=== PATIENT | female | born 1945 | race Caucasian/White ===

== ENCOUNTER 2018-08-22 20:25 | Observation (INO) ==
[2018-08-22 20:52] VITALS: BMI 28.3
--- NOTE | 2018-08-22 20:58 | DR.AMS ---
HPI Time Seen Time Seen by Provider: 08/22/18 20:50 PMH PMH Past Medical History: Anxiety, Arthritis, Depression, Diabetes and Schizophrenia Past Surgical History: Yes Surgical History: Appendectomy and Hysterectomy Family History Family Medical History: Diabetes Mellitus Social History Do you use any recreational Drugs:: No PE Vitals Vital Signs: Temp Pulse Resp BP BP BP Pulse Ox 08/23/18 01:30 180/123 08/23/18 01:15 74 96 08/23/18 01:01 72 175/77 96 08/23/18 01:00 73 96 08/23/18 00:45 78 96 08/23/18 00:31 74 175/75 87 L 08/23/18 00:30 78 83 L 08/23/18 00:15 77 92 L 08/23/18 00:02 79 193/85 96 08/22/18 23:45 80 96 08/22/18 23:44 82 96 08/22/18 20:38 99.3 F 101 H 18 182/92 96 05/02/17 12:14 146/82 04/20/15 22:18 157/53 02/02/14 12:00 134/60 ROR Labs Reviewed Result Diagrams: 08/22/18 21:13 08/22/18 21:13 Laboratory: WBC 6.4 X10^3/uL (3.6-10.0) 08/22/18 21:13 RBC 4.14 X10^6/uL (3.5-5.4) 08/22/18 21:13 Hgb 12.7 g/dL (12.0-16.0) 08/22/18 21:13 Hct 37.5 % (36.0-47.0) 08/22/18 21:13 MCV 90.5 fL (80.0-100.0) 08/22/18 21:13 MCH 30.7 pg (27.0-34.0) 08/22/18 21:13 MCHC 33.9 g/dL (33.0-35.0) 08/22/18 21:13 RDW 13.5 % (11.6-16.5) 08/22/18 21:13 Plt Count 226 X10^3/uL (150.0-450.0) 08/22/18 21:13 MPV 6.6 fL (7.4-11.0) L 08/22/18 21:13 Neut % (Auto) 53.5 % (42.0-75.0) 08/22/18 21:13 Lymph % (Auto) 30.3 % (21.0-51.0) 08/22/18 21:13 [place] % (Auto) 11.5 % (0.0-13.0) 08/22/18 21:13 Eos % (Auto) 4.2 % (0.9-2.9) H 08/22/18 21:13 Baso % (Auto) 0.5 % (0.2-1.0) 08/22/18 21:13 Neut # (Auto) 3.4 x10^3/uL (2.2-4.8) 08/22/18 21:13 Lymph # (Auto) 1.9 X10^3/uL (1.3-2.9) 08/22/18 21:13 [place] # (Auto) 0.7 x10^3/uL (0.3-0.8) 08/22/18 21:13 Eos # (Auto) 0.3 x10^3/uL (0.0-0.2) H 08/22/18 21:13 Baso # (Auto) 0.0 X10^3/uL (0.0-0.1) 08/22/18 21:13 Absolute Nucleated RBC 0.0 /100WBC 08/22/18 21:13 Sodium 140 mmol/L (136-145) 08/22/18 21:13 Corrected Sodium 142 mmol/L (136-145) 08/22/18 21:13 Potassium 4.4 mmol/L (3.5-5.1) 08/22/18 21:13 Chloride 105 mmol/L (98-107) 08/22/18 21:13 Carbon Dioxide 29.3 mmol/L (21-32) 08/22/18 21:13 BUN 21 mg/dL (7-18) H 08/22/18 21:13 Creatinine 1.05 mg/dL (0.55-1.02) H 08/22/18 21:13 Est GFR (MDRD) Af Amer > 60 (>60) 08/22/18 21:13 Est GFR (MDRD) Non-Af 54 (>60) L 08/22/18 21:13 Glucose 165 mg/dL (65-99) H 08/22/18 21:13 Calcium 10.1 mg/dL (8.5-10.1) 08/22/18 21:13 Corrected Calcium TNP 08/22/18 21:13 Total Bilirubin 0.10 mg/dL (0.2-1.0) L 08/22/18 21:13 AST < 6 Units/L (15-37) L 08/22/18 21:13 ALT 6 Units/L (12-78) L 08/22/18 21:13 Alkaline Phosphatase 110 Units/L (46-116) 08/22/18 21:13 Total Protein 7.2 g/dL (6.4-8.2) 08/22/18 21:13 Albumin 3.9 g/dL (3.4-5.0) 08/22/18 21:13 Globulin 3.3 g/dL (2.5-4.5) 08/22/18 21:13 Albumin/Globulin Ratio 1.2 Ratio (1.1-2.1) 08/22/18 21:13 Opioid Opioid Risk Tool Total: 0 Total Score Risk Category: Low Risk Copyright: Toy MCDONALD predicting aberrant behaviors Instructions Forms: Excuse From Work
[2018-08-22 21:23] LABS: BASOPHILS % (AUTO) 0.5 % (0.2-1.0); EOSINOPHILS # (AUTO) 0.3 x10^3/uL (0.0-0.2); EOSINOPHILS % (AUTO) 4.2 % (0.9-2.9); HEMATOCRIT 37.5 % (36.0-47.0); HEMOGLOBIN 12.7 g/dL (12.0-16.0); LYMPHOCYTES # (AUTO) 1.9 X10^3/uL (1.3-2.9); LYMPHOCYTES % (AUTO) 30.3 % (21.0-51.0); MEAN CORPUSCULAR HEMOGLOBIN 30.7 pg (27.0-34.0); MEAN CORPUSCULAR HGB CONC 33.9 g/dL (33.0-35.0); MEAN CORPUSCULAR VOLUME 90.5 fL (80.0-100.0); MEAN PLATELET VOLUME 6.6 fL (7.4-11.0); MONOCYTES # (AUTO) 0.7 x10^3/uL (0.3-0.8); MONOCYTES % (AUTO) 11.5 % (0.0-13.0); NEUTROPHILS # (AUTO) 3.4 x10^3/uL (2.2-4.8); NEUTROPHILS % (AUTO) 53.5 % (42.0-75.0); PLATELET COUNT 226 X10^3/uL (150.0-450.0); RED BLOOD COUNT 4.14 X10^6/uL (3.5-5.4); RED CELL DISTRIBUTION WIDTH 13.5 % (11.6-16.5); WHITE BLOOD COUNT 6.4 X10^3/uL (3.6-10.0)
[2018-08-22 21:34] LABS: ALANINE AMINOTRANSFERASE 6 Units/L (12-78); ALBUMIN 3.9 g/dL (3.4-5.0); ALKALINE PHOSPHATASE 110 Units/L (46-116); ASPARTATE AMINO TRANSFERASE < 6 Units/L (15-37); BLOOD UREA NITROGEN 21 mg/dL (7-18); CALCIUM 10.1 mg/dL (8.5-10.1); CARBON DIOXIDE 29.3 mmol/L (21-32); CHLORIDE 105 mmol/L (98-107); COR NA(FOR HYPERGLY) 142 mmol/L (136-145); CREATININE 1.05 mg/dL (0.55-1.02); SODIUM 140 mmol/L (136-145); TOTAL PROTEIN 7.2 g/dL (6.4-8.2); eGFR NON BLACK RACES 54 (>60)
--- NOTE | 2018-08-23 02:07 | CT ---
HISTORY: Found down. History of dementia. Study: CT brain without contrast Comparison: 04/20/2015. Technique: Multiple axial images of the brain were obtained from the skull base to the vertex without administration of IV contrast. Findings: There is diffuse cerebral atrophy, progressed from prior study from 2016. There also moderate multifocal areas of hypoattenuation involving the periventricular and subcortical white matter, compatible with chronic small vessel ischemic disease. No acute ischemic infarct is identified. There is no acute intracranial hemorrhage, mass, mass effect, or midline shift. No extra-axial fluid collection is identified. Orbits are unremarkable. Skull base is unremarkable. Calvarium is intact. Extracalvarial soft tissues are unremarkable. Visualized paranasal sinuses and mastoid air cells are clear. IMPRESSION: 1. No acute intracranial process can be identified. 2. Progressed cerebral atrophy and chronic small vessel ischemic disease. Reported By:
[2018-08-23] MEDS ORDERED: HumuLIN R SC PRN (03:00)
[2018-08-23 03:45] LABS: BILIRUBIN,URINE NEGATIVE (NEGATIVE); BLOOD/HEMOGLOBIN,URINE NEGATIVE (NEGATIVE); GLUCOSE, URINE NEGATIVE (NEGATIVE); KETONES,URINE NEGATIVE (NEGATIVE); LEUKOCYTE ESTERASE ,URINE 1+ (NEGATIVE); NITRITES,URINE NEGATIVE (NEGATIVE); PH,URINE 6.5 (5.0 - 8.0); PROTEIN,URINE NEGATIVE (NEGATIVE); UROBILINOGEN,URINE NORMAL (NORMAL)
[2018-08-23 04:16] LABS: APPEARANCE,URINE CLEAR (CLEAR); COLOR,URINE YELLOW (YELLOW)
[2018-08-23 04:17] LABS: BACTERIA,URINE NEGATIVE /HPF (NEGATIVE); RBC,URINE NONE SEEN /HPF (NONE SEEN); SQUAMOUS EPITHELIAL CELL,UR RARE /HPF (NEGATIVE); TRANSITIONAL EPI CELLS,URINE RARE /HPF (NEGATIVE)
[2018-08-23] MEDS ORDERED: CATAPRES TAB 0.1 MG ONE ×2 (04:19→05:14)
[2018-08-23] MEDS ORDERED: CATAPRES TAB 0.1 MG PO ONE ×2 (04:24→05:13)
[2018-08-23 05:56] LABS: BASOPHILS % (AUTO) 0.5 % (0.2-1.0); EOSINOPHILS # (AUTO) 0.3 x10^3/uL (0.0-0.2); EOSINOPHILS % (AUTO) 4.6 % (0.9-2.9); HEMATOCRIT 39.2 % (36.0-47.0); HEMOGLOBIN 13.2 g/dL (12.0-16.0); LYMPHOCYTES # (AUTO) 2.8 X10^3/uL (1.3-2.9); LYMPHOCYTES % (AUTO) 41.1 % (21.0-51.0); MEAN CORPUSCULAR HEMOGLOBIN 30.7 pg (27.0-34.0); MEAN CORPUSCULAR HGB CONC 33.6 g/dL (33.0-35.0); MEAN CORPUSCULAR VOLUME 91.4 fL (80.0-100.0); MEAN PLATELET VOLUME 6.9 fL (7.4-11.0); MONOCYTES # (AUTO) 0.7 x10^3/uL (0.3-0.8); NEUTROPHILS # (AUTO) 2.9 x10^3/uL (2.2-4.8); NEUTROPHILS % (AUTO) 42.8 % (42.0-75.0); PLATELET COUNT 229 X10^3/uL (150.0-450.0); RED BLOOD COUNT 4.29 X10^6/uL (3.5-5.4); RED CELL DISTRIBUTION WIDTH 13.9 % (11.6-16.5); WHITE BLOOD COUNT 6.7 X10^3/uL (3.6-10.0)
[2018-08-23 06:07] LABS: ALANINE AMINOTRANSFERASE 7 Units/L (12-78); ALBUMIN 3.8 g/dL (3.4-5.0); ALKALINE PHOSPHATASE 94 Units/L (46-116); ASPARTATE AMINO TRANSFERASE < 6 Units/L (15-37); BLOOD UREA NITROGEN 17 mg/dL (7-18); CALCIUM 9.5 mg/dL (8.5-10.1); CARBON DIOXIDE 25.9 mmol/L (21-32); CHLORIDE 107 mmol/L (98-107); COR NA(FOR HYPERGLY) 141 mmol/L (136-145); CREATININE 0.88 mg/dL (0.55-1.02); MAGNESIUM 1.8 mg/dL (1.7-2.9); SODIUM 141 mmol/L (136-145); TOTAL PROTEIN 7.1 g/dL (6.4-8.2); eGFR NON BLACK RACES > 60 (>60)
[2018-08-23] MEDS ORDERED: ULTRAM ONE (10:35)
[2018-08-23] MEDS ORDERED: VISTARIL PO ONE (10:36)
--- NOTE | 2018-08-23 10:44 | DR.H&P ---
H&P - History & Physical for Day of: H&P Date: 08/23/18 - Chief Complaint Chief Complaint: AMS, CONFUSION - History of Present Illness History of Present Illness: 73 WF ER ADMISSION AFTER PRESENTING WITH CO PT WAS FOUND WONDERING DOWN THE ROAD, DEPUTY ACCOMPANIED PT. PT HAS NO OBVIOUS INJURIES. PT HAS PMH OF DEMENTIA, MENTAL HEALTH DISORDER, DM. PT HAD ADMISSION LABS, CT HEAD IN ER. PT ADMITTED FOR EVALUATION AND TREATMENT OF ACUTE ILLNESS. - Past Medical History Past Medical History: Anxiety, Arthritis, Dementia, Depression, Diabetes, Schizophrenia Additional Medical History: Freq UTI's, Fibromyalgia, Bipolar/Mood Disorders - Past Surgical History Surgical History: Appendectomy, Hysterectomy - Family History Family Medical History: Diabetes Mellitus - Social History Does patient currently use any type of tobacco product: No Have you used tobacco products in the last 12 months: No Type of Tobacco Use: None Does any household member use tobacco: No Alcohol Use: None Drug Use: None - Medications Home Medications: meperidine [From Demerol] Allergy (Verified 05/02/17 12:28) - Review of Systems Constitutional: Weakness Eyes: No Symptoms Reported ENT: No Symptoms Reported Respiratory: No Symptoms Reported Cardiovascular: No Symptoms Reported Gastrointestinal: No Symptoms Reported Genitourinary: No Symptoms Reported Musculoskeletal: No Symptoms Reported Skin: Other (POOR HYGIENE) Neurological: Weakness, Confusion - Physical Exam Vital Signs: Temperature 98.0 F Pulse Rate [Right Brachial] 63 Pulse Rate 71 Respiratory Rate 18 Blood Pressure [Left Arm] 135/66 Blood Pressure [Right Arm] 143/67 Blood Pressure 163/65 O2 Sat by Pulse Oximetry 97 Oriented: Person. negative: Time, Place Eyes: Normal Ear: Normal Nose: Normal Throat: Normal Respiratory: RLL Diminished, LLL Diminished Cardiovascular: Normal : Normal Auscultation: Bowel Sounds: Normal Palpation: Normal Tenderness: Normal Skin: Decreased [place], Other (THICK, YELLOW SCALES TO FEET AND TOES) Musculoskeletal: Normal Psychiatric: Anxiety, Agitation Mood Description: Anxious Affect: Anxious Speech Pattern: Inappropriate - Assessment/Plan (1) Altered mental status Status: Acute Plan: ADMIT, CULTURES COLLECTED ON ADMISSION. CT HEAD ON ADMISSION. BP AND LIPID CONTROL, IV HYDRATION. VERIFY HOME MEDICATION (2) Hypertension Status: Chronic (3) Schizophrenia Status: Chronic (4) GERD (gastroesophageal reflux disease) Status: Chronic - Allergies Allergies/Adverse Reactions: Allergies Allergy/AdvReac Type Severity Reaction Status Date / Time meperidine [From Demerol] Allergy Verified 05/02/17 12:28
[2018-08-23] MEDS: ULTRAM PO PRN ×3 (10:48→23:13)
[2018-08-23] MEDS: VISTARIL PO PRN ×2 (10:50→19:31)
[2018-08-23] MEDS ORDERED: HALDOL INJ ONE (13:07)
[2018-08-23] MEDS: BUSPAR PO SCH ×2 (13:20→20:19)
[2018-08-23] MEDS: ROCEPHIN VIAL 1 GRAM IVP SCH (13:20)
[2018-08-23] MEDS: HALDOL INJ IM PRN ×2 (13:21→21:17)
[2018-08-23] MEDS: NORVASC TAB 5 MG PO SCH (13:21)
[2018-08-23] MEDS ORDERED: BENADRYL INJ 50 MG VIAL ONE (16:21)
[2018-08-23] MEDS: BENADRYL INJ 50 MG VIAL IV PRN (16:27)
[2018-08-24] MEDS ORDERED: K-RIDER 10 MEQ/NS 100 ML 10 MEQ/100 ML BAG IV PRN (00:10)
[2018-08-24] MEDS ORDERED: K-DUR TAB 20 MEQ PO PRN (00:10)
[2018-08-24] MEDS ORDERED: MICRO K EXTEN CAP 10 MEQ PO PRN (00:10)
[2018-08-24] MEDS ORDERED: KLOR-CON PO PRN (00:10)
[2018-08-24] MEDS ORDERED: POTASSIUM CHL 60 MEQ/NS 0.45% 500 ML IV PRN (00:10)
[2018-08-24] MEDS ORDERED: POTASSIUM CHLORIDE LIQ 20 MEQ UDC PO PRN (00:10)
[2018-08-24] MEDS ORDERED: POTASSIUM CHL 40 MEQ/NS 0.45% 500 ML IV PRN (00:10)
[2018-08-24] MEDS: BENADRYL INJ 50 MG VIAL IV PRN (00:22)
[2018-08-24] MEDS ORDERED: MAGNESIUM SULFATE 1 GRAM/100 mL PREMIX 2 G/200 ML BAG IV ONE (01:36)
[2018-08-24] MEDS: MAGNESIUM SULFATE 1 GRAM/100 mL PREMIX 1 GM/100 ML BAG IV PRN ×2 (01:42→02:38)
[2018-08-24] MEDS: NS 1000 ML 1,000 ML IV SCH ×2 (01:59→04:48)
[2018-08-24] MEDS: ULTRAM PO PRN (03:39)
[2018-08-24] MEDS: VISTARIL PO PRN (03:40)
[2018-08-24] MEDS ORDERED: CATAPRES TAB 0.1 MG PO PRN (04:48)
[2018-08-24] MEDS ORDERED: CATAPRES TAB 0.1 MG ONE (04:53)
[2018-08-24 05:23] LABS: BASOPHILS % (AUTO) 0.4 % (0.2-1.0); EOSINOPHILS # (AUTO) 0.1 x10^3/uL (0.0-0.2); EOSINOPHILS % (AUTO) 0.8 % (0.9-2.9); HEMATOCRIT 41.8 % (36.0-47.0); HEMOGLOBIN 14.2 g/dL (12.0-16.0); LYMPHOCYTES % (AUTO) 22.3 % (21.0-51.0); MEAN CORPUSCULAR HEMOGLOBIN 30.8 pg (27.0-34.0); MEAN CORPUSCULAR HGB CONC 34.1 g/dL (33.0-35.0); MEAN CORPUSCULAR VOLUME 90.6 fL (80.0-100.0); MONOCYTES # (AUTO) 0.6 x10^3/uL (0.3-0.8); MONOCYTES % (AUTO) 7.1 % (0.0-13.0); NEUTROPHILS # (AUTO) 6.3 x10^3/uL (2.2-4.8); NEUTROPHILS % (AUTO) 69.4 % (42.0-75.0); PLATELET COUNT 233 X10^3/uL (150.0-450.0); RED BLOOD COUNT 4.61 X10^6/uL (3.5-5.4); RED CELL DISTRIBUTION WIDTH 13.6 % (11.6-16.5)
[2018-08-24 05:41] LABS: ALANINE AMINOTRANSFERASE 17 Units/L (12-78); ALBUMIN 4.1 g/dL (3.4-5.0); ALKALINE PHOSPHATASE 88 Units/L (46-116); ASPARTATE AMINO TRANSFERASE 20 Units/L (15-37); BLOOD UREA NITROGEN 11 mg/dL (7-18); CALCIUM 10.1 mg/dL (8.5-10.1); CARBON DIOXIDE 26.5 mmol/L (21-32); CHLORIDE 101 mmol/L (98-107); COR NA(FOR HYPERGLY) 138 mmol/L (136-145); CREATININE 0.68 mg/dL (0.55-1.02); SODIUM 136 mmol/L (136-145); TOTAL PROTEIN 7.9 g/dL (6.4-8.2); eGFR NON BLACK RACES > 60 (>60)
[2018-08-24] MEDS: BUSPAR PO SCH (09:31)
[2018-08-24] MEDS: ROCEPHIN VIAL 1 GRAM IVP SCH (09:31)
[2018-08-24] MEDS: NORVASC TAB 5 MG PO SCH (09:31)
[2018-08-24 12:42] VITALS: BP 122/68
--- NOTE | 2018-08-24 17:36 | PCM.DCPLAN ---
Discharge Summary - Admission Date Date of Admission: 08/23/18 - Discharge Date Discharge Date: 08/24/18 - Admission Diagnoses (1) Altered mental status Status: Acute (2) Hypertension Status: Chronic (3) Schizophrenia Status: Chronic (4) GERD (gastroesophageal reflux disease) Status: Chronic - Discharge Diagnoses Discharge Diagnosis: DEMENTIA HYPERTENSION GERD SCHIZOPRENIA OA - Discharge Medications Discharge Medications: Prescriptions: - Hospital Course Vital Signs: Temperature 99.2 F Pulse Rate [Right Brachial] 90 Pulse Rate 71 Respiratory Rate 18 Blood Pressure [Left Arm] 145/70 Blood Pressure [Right Arm] 122/68 Blood Pressure 163/65 O2 Sat by Pulse Oximetry 98 Latest Lab Results: Laboratory Last Values WBC 9.0 X10^3/uL (3.6-10.0) 08/24/18 04:56 RBC 4.61 X10^6/uL (3.5-5.4) 08/24/18 04:56 Hgb 14.2 g/dL (12.0-16.0) 08/24/18 04:56 Hct 41.8 % (36.0-47.0) 08/24/18 04:56 MCV 90.6 fL (80.0-100.0) 08/24/18 04:56 MCH 30.8 pg (27.0-34.0) 08/24/18 04:56 MCHC 34.1 g/dL (33.0-35.0) 08/24/18 04:56 RDW 13.6 % (11.6-16.5) 08/24/18 04:56 Plt Count 233 X10^3/uL (150.0-450.0) 08/24/18 04:56 MPV 7.0 fL (7.4-11.0) L 08/24/18 04:56 Neut % (Auto) 69.4 % (42.0-75.0) 08/24/18 04:56 Lymph % (Auto) 22.3 % (21.0-51.0) 08/24/18 04:56 [place] % (Auto) 7.1 % (0.0-13.0) 08/24/18 04:56 Eos % (Auto) 0.8 % (0.9-2.9) L 08/24/18 04:56 Baso % (Auto) 0.4 % (0.2-1.0) 08/24/18 04:56 Neut # (Auto) 6.3 x10^3/uL (2.2-4.8) H 08/24/18 04:56 Lymph # (Auto) 2.0 X10^3/uL (1.3-2.9) 08/24/18 04:56 [place] # (Auto) 0.6 x10^3/uL (0.3-0.8) 08/24/18 04:56 Eos # (Auto) 0.1 x10^3/uL (0.0-0.2) 08/24/18 04:56 Baso # (Auto) 0.0 X10^3/uL (0.0-0.1) 08/24/18 04:56 Absolute Nucleated RBC 0.0 /100WBC 08/24/18 04:56 Sodium 136 mmol/L (136-145) 08/24/18 04:56 Corrected Sodium 138 mmol/L (136-145) 08/24/18 04:56 Potassium 3.7 mmol/L (3.5-5.1) 08/24/18 04:56 Chloride 101 mmol/L (98-107) 08/24/18 04:56 Carbon Dioxide 26.5 mmol/L (21-32) 08/24/18 04:56 BUN 11 mg/dL (7-18) 08/24/18 04:56 Creatinine 0.68 mg/dL (0.55-1.02) 08/24/18 04:56 Est GFR (MDRD) Af Amer > 60 (>60) 08/24/18 04:56 Est GFR (MDRD) Non-Af > 60 (>60) 08/24/18 04:56 Glucose 172 mg/dL (65-99) H 08/24/18 04:56 Hemoglobin A1c 6.1 % 08/23/18 05:45 Calcium 10.1 mg/dL (8.5-10.1) 08/24/18 04:56 Corrected Calcium TNP 08/24/18 04:56 Magnesium 2.3 mg/dL (1.7-2.9) 08/24/18 04:56 Total Bilirubin 0.40 mg/dL (0.2-1.0) 08/24/18 04:56 AST 20 Units/L (15-37) 08/24/18 04:56 ALT 17 Units/L (12-78) 08/24/18 04:56 Alkaline Phosphatase 88 Units/L (46-116) 08/24/18 04:56 Total Protein 7.9 g/dL (6.4-8.2) 08/24/18 04:56 Albumin 4.1 g/dL (3.4-5.0) 08/24/18 04:56 Globulin 3.8 g/dL (2.5-4.5) 08/24/18 04:56 Albumin/Globulin Ratio 1.1 Ratio (1.1-2.1) 08/24/18 04:56 Specimen Type Clean catch urine 08/23/18 03:32 Urine Color Yellow (YELLOW) 08/23/18 03:32 Urine Appearance Clear (CLEAR) 08/23/18 03:32 Urine pH 6.5 (5.0 - 8.0) 08/23/18 03:32 Ur Specific Maxie 1.010 (1.000-1.030) 08/23/18 03:32 Urine Protein Negative (NEGATIVE) 08/23/18 03:32 Urine Glucose (UA) Negative (NEGATIVE) 08/23/18 03:32 Urine Ketones Negative (NEGATIVE) 08/23/18 03:32 Urine Occult Blood Negative (NEGATIVE) 08/23/18 03:32 Urine Nitrite Negative (NEGATIVE) 08/23/18 03:32 Urine Bilirubin Negative (NEGATIVE) 08/23/18 03:32 Urine Urobilinogen Normal (NORMAL) 08/23/18 03:32 Ur Leukocyte Esterase 1+ (NEGATIVE) 08/23/18 03:32 Urine RBC None seen /HPF (NONE SEEN) 08/23/18 03:32 Urine WBC 0-2 /HPF (NONE SEEN) 08/23/18 03:32 Ur Squamous Epith Cells Rare /HPF (NEGATIVE) 08/23/18 03:32 Ur Transition Epith Cell Rare /HPF (NEGATIVE) 08/23/18 03:32 Urine Bacteria Negative /HPF (NEGATIVE) 08/23/18 03:32 Ur Culture Indicated? No/not indicated 08/23/18 03:32 Hospital Course: 73 WF ER ADMISSION AFTER PRESENTING WITH CO PT WAS FOUND WONDERING DOWN THE ROAD, DEPUTY ACCOMPANIED PT. PT HAS NO OBVIOUS INJURIES. PT HAS PMH OF DEMENTIA, MENTAL HEALTH DISORDER, DM. PT HAD ADMISSION LABS, CT HEAD IN ER. PT ADMITTED FOR EVALUATION AND TREATMENT OF ACUTE ILLNESS. PT CONTINUED WITH AGITATION AND CONFUSION WITH RESUMED HOME MEDICATION FOR ANXIETY, MENTAL HEALTH DISORDER. PT LABS AND CT HEAD WITHOUT ACUTE FINDINGS. PT SPOUSE STATES SHE HAS HAD INCREASED CONFUSION AND AGITATION. PT SPOUSE IS CAREGIVER IS IN POOR HEALTH, HE STATES HE CANNOT CARE FOR HER IN THIS CURRENT MEDICAL STATE. DISCUSSED OPTIONS FOR BEHAVIOR HEALTH THERAPY. PT WAS ACCEPTED AND [facility]. PT CONDITION ON DC WAS IMPROVED AND STABLE. - Discharge Plan Disposition: 03 XFER SNF Condition: Stable - Follow ups/Referrals Follow ups/Referrals: PAULINE PERRY [Primary Care Provider] - 3 days - Instructions Forms: Excuse From Work
== END 2018-08-24 17:10 ==
LOC: ER 20:25 → MED/SURG 20:25
PROVIDERS: ADMIT Internal Medicine; ATTEND Internal Medicine
DX: K21.9 Gastro-esophageal reflux disease without esophagitis; R40.4 Transient alteration of awareness; F20.9 Schizophrenia, unspecified; M19.90 Unspecified osteoarthritis, unspecified site; F41.8 Other specified anxiety disorders; E11.65 Type 2 diabetes mellitus with hyperglycemia; F99 Mental disorder, not otherwise specified; M62.81 Muscle weakness (generalized); I10 Essential (primary) hypertension
CPT/HCPCS: 36415; 70450; 71010; 71045; 80053; 81001; 83036; 83735; 85025; 93005; 94760; 96365; 96367; 96372; 96374; 97165; 99284; A4222; Q0177; G0378; J0696; J1200; J1630; J1815; J3475; J7030

== ENCOUNTER 2021-02-05 11:37 | Observation (INO) ==
[2021-02-05] MEDS ORDERED: NS 1,000 ML IV 1,000 ML IV ONE (15:21)
[2021-02-05] MEDS ORDERED: NS 1,000 ML IV 1,000 ML IV SCH (15:21)
[2021-02-05] MEDS: PROTONIX INJ 40 MG VIAL IVP SCH (15:30)
--- NOTE | 2021-02-05 15:53 | RAD ---
HISTORYSOB, ANEMIA, UPPER GI BLEEDSTUDYCHEST x-ray, 1 VIEWCOMPARISONX-ray 01/08/2019FINDINGSPatient is rotated to the left. Persistent elevation of the left hemidiaphragm. No pneumothorax, focal infiltrate, or pleural effusion is seen.IMPRESSIONNo acute cardiopulmonary abnormality is seen.Electronically signed by: Ashok Kovacs (Feb 05, 2021 15:52:30)
[2021-02-05 16:05] VITALS: BMI 31.2
[2021-02-05 16:06] LABS: BASOPHILS # (AUTO) 0.2 X10^3/uL (0.0-0.1); BASOPHILS % (AUTO) 2.1 % (0.2-1.0); EOSINOPHILS # (AUTO) 0.2 x10^3/uL (0.0-0.2); EOSINOPHILS % (AUTO) 2.7 % (0.9-2.9); HEMATOCRIT 31.2 % (36.0-47.0); HEMOGLOBIN 9.6 g/dL (12.0-16.0); LYMPHOCYTES # (AUTO) 2.5 X10^3/uL (1.3-2.9); LYMPHOCYTES % (AUTO) 29.1 % (21.0-51.0); MEAN CORPUSCULAR HEMOGLOBIN 20.7 pg (27.0-34.0); MEAN CORPUSCULAR HGB CONC 30.7 g/dL (33.0-35.0); MEAN CORPUSCULAR VOLUME 67.5 fL (80.0-100.0); MEAN PLATELET VOLUME 7.3 fL (7.4-11.0); MONOCYTES # (AUTO) 0.7 x10^3/uL (0.3-0.8); MONOCYTES % (AUTO) 8.5 % (0.0-13.0); NEUTROPHILS # (AUTO) 4.9 x10^3/uL (2.2-4.8); NEUTROPHILS % (AUTO) 57.6 % (42.0-75.0); PLATELET COUNT 519 X10^3/uL (150.0-450.0); RED BLOOD COUNT 4.62 X10^6/uL (3.5-5.4); RED CELL DISTRIBUTION WIDTH 30.5 % (11.6-16.5); WHITE BLOOD COUNT 8.5 X10^3/uL (3.6-10.0)
[2021-02-05 16:23] LABS: PLATELET MORPHOLOGY COMMENT NORMAL (NORMAL)
[2021-02-05 16:24] LABS: ANISOCYTOSIS 3+; MICROCYTOSIS 1+
[2021-02-05 17:12] LABS: ALANINE AMINOTRANSFERASE 23 Units/L (12-78); ALBUMIN 3.6 g/dL (3.4-5.0); ALKALINE PHOSPHATASE 87 Units/L (46-116); ASPARTATE AMINO TRANSFERASE 19 Units/L (15-37); BLOOD UREA NITROGEN 7 mg/dL (7-18); CALCIUM 9.6 mg/dL (8.5-10.1); CARBON DIOXIDE 24.6 mmol/L (21-32); CHLORIDE 102 mmol/L (98-107); COR NA(FOR HYPERGLY) 140 mmol/L (136-145); CREATININE 0.68 mg/dL (0.55-1.02); FREE T4 (FREE THYROXINE) 1.16 ng/dL (0.76-1.46); SODIUM 138 mmol/L (136-145); TOTAL PROTEIN 7.9 g/dL (6.4-8.2); eGFR NON BLACK RACES > 60 (>60)
[2021-02-05 17:29] LABS: IRON 19 ug/dL (50-175)
[2021-02-05] MEDS: SNACK - Diabetic Appropriate PO SCH (20:40)
[2021-02-05] MEDS ORDERED: RESTORIL CAP 15 MG PO PRN (20:49)
[2021-02-06 05:33] LABS: BASOPHILS % (AUTO) 0.3 % (0.2-1.0); EOSINOPHILS # (AUTO) 0.2 x10^3/uL (0.0-0.2); EOSINOPHILS % (AUTO) 2.2 % (0.9-2.9); HEMATOCRIT 35.2 % (36.0-47.0); HEMOGLOBIN 10.8 g/dL (12.0-16.0); LYMPHOCYTES # (AUTO) 2.1 X10^3/uL (1.3-2.9); LYMPHOCYTES % (AUTO) 21.1 % (21.0-51.0); MEAN CORPUSCULAR HEMOGLOBIN 20.8 pg (27.0-34.0); MEAN CORPUSCULAR HGB CONC 30.5 g/dL (33.0-35.0); MEAN CORPUSCULAR VOLUME 68.1 fL (80.0-100.0); MEAN PLATELET VOLUME 8.4 fL (7.4-11.0); MONOCYTES # (AUTO) 0.8 x10^3/uL (0.3-0.8); MONOCYTES % (AUTO) 7.5 % (0.0-13.0); NEUTROPHILS # (AUTO) 6.9 x10^3/uL (2.2-4.8); NEUTROPHILS % (AUTO) 68.9 % (42.0-75.0); PLATELET COUNT 555 X10^3/uL (150.0-450.0); RED BLOOD COUNT 5.17 X10^6/uL (3.5-5.4); RED CELL DISTRIBUTION WIDTH 31.6 % (11.6-16.5); WHITE BLOOD COUNT 10.1 X10^3/uL (3.6-10.0)
[2021-02-06 05:46] LABS: ALANINE AMINOTRANSFERASE 22 Units/L (12-78); ALBUMIN 3.9 g/dL (3.4-5.0); ALKALINE PHOSPHATASE 97 Units/L (46-116); ASPARTATE AMINO TRANSFERASE 22 Units/L (15-37); BLOOD UREA NITROGEN 6 mg/dL (7-18); CALCIUM 9.9 mg/dL (8.5-10.1); CARBON DIOXIDE 24.5 mmol/L (21-32); CHLORIDE 100 mmol/L (98-107); COR NA(FOR HYPERGLY) 138 mmol/L (136-145); CREATININE 0.58 mg/dL (0.55-1.02); SODIUM 136 mmol/L (136-145); TOTAL PROTEIN 8.7 g/dL (6.4-8.2); eGFR NON BLACK RACES > 60 (>60)
[2021-02-06 06:00] LABS: ANISOCYTOSIS 3+; HYPOCHROMASIA 1+; MICROCYTOSIS 1+; OVALOCYTES PRESENT; PLATELET MORPHOLOGY COMMENT NORMAL (NORMAL)
--- NOTE | 2021-02-06 08:54 | CT ---
HISTORYPT C/O ABD PAINSTUDYCT abdomen pelvis without IV contrastCOMPARISONNoneTECHNIQUEMultiple axial images of the abdomen and pelvis were obtained from the lung bases to the pubic symphysis without the administration of IV contrast. Dose reduction techniques including Automated Exposure Control (AEC) and adjustment of mA and kV were utilized.FINDINGSThe visualized portions of the lung bases reveal a small left pleural effusion.The liver and spleen display no abnormalities.Mild cholelithiasis without evidence of cholecystitis. No biliary ductal dilation.No pancreatic abnormality is seen.The adrenal glands appear normal.There are perinephric streaky densities that could be from poor renal function. No nephrolithiasis or hydronephrosis. Multiple phleboliths are seen in the pelvis. Ureters and bladder appear normal.There is a short segment of wall thickening and a bowel loop in the right-side of the abdomen. This is probably in the hepatic flexure of the colon but the colon is difficult to follow. It could possibly be in small bowel. No bowel obstruction is seen. Remainder of the small bowel has no definite wall thickening. Prior appendectomy.No adnexal masses.Abdominal aorta is normal in size.There is suspicious appearing retroperitoneal lymphadenopathy. In the left para-aortic region there is a 3.3 x 1.5 cm lymph node with multiple other enlarged but smaller lymph nodes the retroperitoneum the abdomen. There is a rounded lymph node adjacent to the left common iliac artery at the pelvic inlet. It measures 2.3 x 2.6 cm. Smaller pelvic lymph nodes are seen but are concerning for malignant lymphadenopathy. These measure up to 1.1 cm in the short axis. Multiple small lymph nodes are seen in the bowel mesentery with hazy inflammation in the bowel mesentery. Enlarged retrocrural lymph nodes are seen. Consider lymphoma as well as malignant lymphadenopathy. The short-segment bowel wall thickening abnormality could possibly be from lymphoma involvement or malignancy.No free intraperitoneal air or fluid is seen.There is a mildly displaced fracture of the left 9th rib.IMPRESSIONSuspicious lymphadenopathy in the abdomen and pelvis could be from lymphoma or malignant lymphadenopathy.Short segment of wall thickening in a bowel loop in the right-side of the abdomen in the region image 42 of series 3. This is probably in the hepatic flexure of the colon but could possibly be small bowel. Short segment involvement is concerning for involvement by lymphoma or malignancy. Less likely the appearance is due to inflammation.Mildly displaced fracture of the lateral aspect of the left 9th rib.Mild cholelithiasis without evidence of cholecystitis.Electronically signed by: Ashok Kovacs (Feb 06, 2021 08:53:05)
[2021-02-06] MEDS: PROTONIX INJ 40 MG VIAL IVP SCH (09:00)
--- NOTE | 2021-02-06 11:25 | CT ---
HISTORYAMSSTUDYCT brain without IV contrastCOMPARISONCT 08/23/2018TECHNIQUEMultiple axial images of the brain were obtained without IV contrast. Dose reduction techniques including Automated Exposure Control (AEC) and adjustment of mA and kV were utilized.FINDINGSMild mucosal thickening in the right sphenoid sinus. No air-fluid levels are seen in the paranasal sinuses or mastoid air cells. No calvarial fracture is seen.No acute intracranial hemorrhage or mass effect is seen. Prominent diffuse volume loss in the brain with compensatory enlargement of ventricular system. Volume loss has increased from prior study. Likely moderate chronic small vessel ischemic changes are similar to prior study. No evidence of acute CVA.IMPRESSIONWorsening prominent volume loss in the brain.Moderate chronic small vessel ischemic changes appear very similar to prior study. No evidence of acute CVA.Electronically signed by: Ashok Kovacs (Feb 06, 2021 11:24:16)
--- NOTE | 2021-02-06 11:59 | PCM.PROG ---
Progress Note - Subjective Subjective: Patient is a 75 year old white female who was admitted due to AMS and rule out GI bleed. Family reports dark tarry stools and a gradually decreasing hgb over the past few months. Family reports they are having a hard time taking care of her at home due to advanced dementia. Patient remains confused on exam today; which is baseline. Will consult Dr. Boyce for colonoscopy, anemia. - Past Medical Family Social History Past Med/Fam/Surg Hx: No changes since H&P Allergies: Allergies meperidine [From Demerol] Allergy (Verified 05/02/17 12:28) - Review of Systems ROS: No change since H&P - Vital Signs and I&O's Vital Signs: Temperature 98.6 F Pulse Rate [Bilateral Radial] 105 Respiratory Rate 20 Blood Pressure [Left Arm] 186/98 O2 Sat by Pulse Oximetry 94 Intake and Output: Intake & Output 02/03/21 02/04/21 02/05/21 02/06/21 23:59 23:59 23:59 23:59 Intake Total 468 / 468 730 / 730 Balance 468 / 468 730 / 730 - Physical Exam Oriented: Not Oriented Eyes: Normal Ear: Normal Nose: Normal Throat: Normal Respiratory: Normal Cardiovascular: Normal : Normal Auscultation: Bowel Sounds: Normal Palpation: Other (Distended, firm but soft) Tenderness: Diffuse, Mild Skin: Normal Musculoskeletal: Instability Psychiatric: Anxiety Mood Description: Anxious Affect: Anxious Speech Pattern: Clear, Inappropriate - Laboratory and Diagnostics Result Diagrams: 02/06/21 04:00 02/06/21 04:00 Labs: Laboratory WBC 10.1 X10^3/uL (3.6-10.0) H 02/06/21 04:00 RBC 5.17 X10^6/uL (3.5-5.4) 02/06/21 04:00 Hgb 10.8 g/dL (12.0-16.0) L 02/06/21 04:00 Hct 35.2 % (36.0-47.0) L 02/06/21 04:00 MCV 68.1 fL (80.0-100.0) L 02/06/21 04:00 MCH 20.8 pg (27.0-34.0) L 02/06/21 04:00 MCHC 30.5 g/dL (33.0-35.0) L 02/06/21 04:00 RDW 31.6 % (11.6-16.5) H 02/06/21 04:00 Plt Count 555 X10^3/uL (150.0-450.0) H 02/06/21 04:00 Plt Count Comment Increased (ADEQUATE) A 02/06/21 04:00 MPV 8.4 fL (7.4-11.0) 02/06/21 04:00 Neut % (Auto) 68.9 % (42.0-75.0) 02/06/21 04:00 Lymph % (Auto) 21.1 % (21.0-51.0) 02/06/21 04:00 [place] % (Auto) 7.5 % (0.0-13.0) 02/06/21 04:00 Eos % (Auto) 2.2 % (0.9-2.9) 02/06/21 04:00 Baso % (Auto) 0.3 % (0.2-1.0) 02/06/21 04:00 Neut # (Auto) 6.9 x10^3/uL (2.2-4.8) H 02/06/21 04:00 Lymph # (Auto) 2.1 X10^3/uL (1.3-2.9) 02/06/21 04:00 [place] # (Auto) 0.8 x10^3/uL (0.3-0.8) 02/06/21 04:00 Eos # (Auto) 0.2 x10^3/uL (0.0-0.2) 02/06/21 04:00 Baso # (Auto) 0.0 X10^3/uL (0.0-0.1) 02/06/21 04:00 Absolute Nucleated RBC 0.0 /100WBC 02/06/21 04:00 Plt Morphology Comment Normal (NORMAL) 02/06/21 04:00 RBC Morphology Abnormal (NORMAL) A 02/06/21 04:00 Dimorphic RBCs 2+ 02/06/21 04:00 Hypochromasia 1+ A 02/06/21 04:00 Anisocytosis 3+ A 02/06/21 04:00 Microcytosis 1+ A 02/06/21 04:00 Ovalocytes Present 02/06/21 04:00 Sodium 136 mmol/L (136-145) 02/06/21 04:00 Corrected Sodium 138 mmol/L (136-145) 02/06/21 04:00 Potassium 3.8 mmol/L (3.5-5.1) 02/06/21 04:00 Chloride 100 mmol/L (98-107) 02/06/21 04:00 Carbon Dioxide 24.5 mmol/L (21-32) 02/06/21 04:00 BUN 6 mg/dL (7-18) L 02/06/21 04:00 Creatinine 0.58 mg/dL (0.55-1.02) 02/06/21 04:00 Est GFR (MDRD) Af Amer > 60 (>60) 02/06/21 04:00 Est GFR (MDRD) Non-Af > 60 (>60) 02/06/21 04:00 Glucose 203 mg/dL (65-99) H 02/06/21 04:00 POC Glucose (mg/dL) 305 mg/dL (65-99) H 02/06/21 11:36 Calcium 9.9 mg/dL (8.5-10.1) 02/06/21 04:00 Corrected Calcium TNP 02/06/21 04:00 Iron 19 ug/dL (50-175) L 02/05/21 16:35 Transferrin 263 mg/dL (202-364) 02/05/21 16:35 Ferritin 33 ng/mL (8-252) 02/05/21 16:35 Total Bilirubin 0.30 mg/dL (0.2-1.0) 02/06/21 04:00 AST 22 Units/L (15-37) 02/06/21 04:00 ALT 22 Units/L (12-78) 02/06/21 04:00 Alkaline Phosphatase 97 Units/L (46-116) 02/06/21 04:00 Total Protein 8.7 g/dL (6.4-8.2) H 02/06/21 04:00 Albumin 3.9 g/dL (3.4-5.0) 02/06/21 04:00 Globulin 4.8 g/dL (2.5-4.5) H 02/06/21 04:00 Albumin/Globulin Ratio 0.8 Ratio (1.1-2.1) L 02/06/21 04:00 Vitamin B12 511 pg/mL (193-986) 02/05/21 16:35 Folate > 20.0 ng/mL (>8.6) 02/05/21 16:35 Free T4 1.16 ng/dL (0.76-1.46) 02/05/21 16:35 TSH 3rd Generation 0.310 uIU/mL (0.358-3.74) L 02/05/21 16:35 SARS CoV-2 RNA Rapid CANDIE Negative (NEGATIVE) 02/05/21 13:54 - Plan (1) Schizophrenia Status: Chronic (2) Altered mental status Status: Acute Plan: Ct head wo (3) Depression Status: Chronic (4) Dementia with behavioral problem Status: Acute Qualifiers: Dementia type: Alzheimer's disease Alzheimer's disease onset: unspecified onset (5) Abdominal pain Status: Acute Plan: See CT abd results. Consult Dr. Boyce for colonoscopy and anemia. Goljuan josély prep (6) Anemia Status: Acute Plan: Monitor
[2021-02-06] MEDS: NAMENDA TAB 10 MG PO SCH (12:45)
[2021-02-06] MEDS: AMARYL TAB 4 MG PO SCH (12:45)
[2021-02-06] MEDS: DETROL LA 2 MG CAP EXT REL PO SCH (12:45)
[2021-02-06] MEDS: GLUCOPHAGE PO SCH ×2 (12:45→20:38)
[2021-02-06] MEDS ORDERED: GLUCOPHAGE ONE ×2 (12:51→20:35)
[2021-02-06] MEDS ORDERED: GOLYTELY or GAVILYTE or Equivalent PO NR (13:00)
[2021-02-06] MEDS: NovoLIN R (or HumuLIN R) SUBCUT PRN ×3 (13:14→17:51)
[2021-02-06 16:49] LABS: BILIRUBIN,URINE NEGATIVE (NEGATIVE); BLOOD/HEMOGLOBIN,URINE 1+ (NEGATIVE); GLUCOSE, URINE 4+ (NEGATIVE); KETONES,URINE NEGATIVE (NEGATIVE); LEUKOCYTE ESTERASE ,URINE 1+ (NEGATIVE); NITRITES,URINE NEGATIVE (NEGATIVE); PROTEIN,URINE 4+ (NEGATIVE); UROBILINOGEN,URINE NORMAL (NORMAL)
[2021-02-06] MEDS ORDERED: DULCOLAX TAB EC 5 MG PO ONE (17:12)
[2021-02-06] MEDS ORDERED: CITROMA PO ONE (17:12)
[2021-02-06 17:27] LABS: APPEARANCE,URINE CLOUDY (CLEAR); BACTERIA,URINE TRACE /HPF (NEGATIVE); COLOR,URINE YELLOW (YELLOW); MUCUS,URINE RARE /HPF (NEGATIVE); SQUAMOUS EPITHELIAL CELL,UR RARE /HPF (NEGATIVE)
[2021-02-06] MEDS: SNACK - Diabetic Appropriate PO SCH ×2 (20:36)
[2021-02-06] MEDS: XANAX PO SCH (20:37)
[2021-02-06] MEDS: ARICEPT TAB 10 MG PO SCH (20:37)
[2021-02-06] MEDS: DESYREL PO SCH (20:37)
[2021-02-06] MEDS: RESTORIL CAP 15 MG PO SCH (20:37)
[2021-02-06] MEDS: LIPITOR TAB 20 MG PO SCH (20:38)
[2021-02-06] MEDS ORDERED: ARICEPT TAB 10 MG PO SCH (21:00)
[2021-02-07 06:10] LABS: BASOPHILS % (AUTO) 0.4 % (0.2-1.0); EOSINOPHILS # (AUTO) 0.2 x10^3/uL (0.0-0.2); EOSINOPHILS % (AUTO) 1.7 % (0.9-2.9); HEMATOCRIT 33.9 % (36.0-47.0); HEMOGLOBIN 10.3 g/dL (12.0-16.0); LYMPHOCYTES % (AUTO) 20.5 % (21.0-51.0); MEAN CORPUSCULAR HEMOGLOBIN 20.7 pg (27.0-34.0); MEAN CORPUSCULAR HGB CONC 30.4 g/dL (33.0-35.0); MEAN CORPUSCULAR VOLUME 67.9 fL (80.0-100.0); MEAN PLATELET VOLUME 8.2 fL (7.4-11.0); MONOCYTES # (AUTO) 0.9 x10^3/uL (0.3-0.8); MONOCYTES % (AUTO) 8.9 % (0.0-13.0); NEUTROPHILS # (AUTO) 6.6 x10^3/uL (2.2-4.8); NEUTROPHILS % (AUTO) 68.5 % (42.0-75.0); PLATELET COUNT 515 X10^3/uL (150.0-450.0); WHITE BLOOD COUNT 9.7 X10^3/uL (3.6-10.0)
[2021-02-07 06:29] LABS: ALANINE AMINOTRANSFERASE 20 Units/L (12-78); ALBUMIN 3.5 g/dL (3.4-5.0); ALKALINE PHOSPHATASE 91 Units/L (46-116); ASPARTATE AMINO TRANSFERASE 19 Units/L (15-37); BLOOD UREA NITROGEN 14 mg/dL (7-18); CALCIUM 9.6 mg/dL (8.5-10.1); CARBON DIOXIDE 25.8 mmol/L (21-32); CHLORIDE 98 mmol/L (98-107); COR NA(FOR HYPERGLY) 136 mmol/L (136-145); CREATININE 1.14 mg/dL (0.55-1.02); SODIUM 133 mmol/L (136-145); TOTAL PROTEIN 7.8 g/dL (6.4-8.2); eGFR NON BLACK RACES 49 (>60)
[2021-02-07 07:01] LABS: ANISOCYTOSIS 3+; HYPOCHROMASIA 2+; PLATELET MORPHOLOGY COMMENT NORMAL (NORMAL)
[2021-02-07 07:02] LABS: MICROCYTOSIS 1+; OVALOCYTES 1+
[2021-02-07] MEDS: PROTONIX TAB 40 MG PO SCH (08:35)
[2021-02-07] MEDS: AMARYL TAB 4 MG PO SCH (08:36)
[2021-02-07] MEDS: NAMENDA TAB 10 MG PO SCH (08:37)
[2021-02-07] MEDS: GLUCOPHAGE PO SCH ×2 (08:38→21:40)
[2021-02-07] MEDS: DETROL LA 2 MG CAP EXT REL PO SCH (08:38)
[2021-02-07] MEDS ORDERED: PROTONIX INJ 40 MG VIAL IVP NR (10:00)
[2021-02-07] MEDS: NovoLIN R (or HumuLIN R) SUBCUT PRN ×3 (11:51→21:42)
[2021-02-07] MEDS ORDERED: NS 500 ML IV 500 ML IV ONE (13:18)
[2021-02-07] MEDS ORDERED: DIPRIVAN VIAL 20 ML ONE ×2 (13:20→13:45)
[2021-02-07] MEDS ORDERED: KETALAR ONE (13:21)
[2021-02-07] MEDS ORDERED: NEO-SYNEPHRINE INJ ONE (13:21)
[2021-02-07] MEDS ORDERED: XYLOCAINE 2 % (PLAIN) ONE (13:21)
[2021-02-07] MEDS: BUTT CREAM (COMPOUND) TOP SCH ×2 (15:11→21:47)
--- NOTE | 2021-02-07 15:36 | PCM.PROG ---
Progress Note - Subjective Subjective: Patient is a 75 year old white female who was admitted due to AMS and rule out GI bleed. Family reports dark tarry stools and a gradually decreasing hgb over the past few months. Family reports they are having a hard time taking care of her at home due to advanced dementia and mental health issues. Patient remains confused on exam today; which is baseline. CT abd and pelvis abnormal. Patient is to undergo colonoscopy today. - Past Medical Family Social History Past Med/Fam/Surg Hx: No changes since H&P Allergies: Allergies meperidine [From Demerol] Allergy (Verified 05/02/17 12:28) - Review of Systems ROS: No change since H&P - Vital Signs and I&O's Vital Signs: Temperature 97.7 F Pulse Rate [Bilateral Radial] 108 Pulse Rate 95 Respiratory Rate 20 Blood Pressure [Left Arm] 123/50 Blood Pressure 203/93 O2 Sat by Pulse Oximetry 99 Intake and Output: Intake & Output 02/04/21 02/05/21 02/06/21 02/07/21 23:59 23:59 23:59 23:59 Intake Total 468 / 468 1670 / 1670 1090 / 1090 Balance 468 / 468 1670 / 1670 1090 / 1090 - Physical Exam Oriented: Not Oriented Eyes: Normal Ear: Normal Nose: Normal Throat: Normal Respiratory: Normal Cardiovascular: Normal : Normal Auscultation: Bowel Sounds: Normal Palpation: Normal Tenderness: Diffuse, Mild Skin: Normal Musculoskeletal: Instability Psychiatric: Anxiety Mood Description: Anxious Affect: Anxious Speech Pattern: Clear, Inappropriate, Excessive - Laboratory and Diagnostics Result Diagrams: 02/07/21 05:27 02/07/21 05:27 Labs: 02/06/21 16:30 Urine,Clean Catch Urine Culture - Preliminary Laboratory WBC 9.7 X10^3/uL (3.6-10.0) 02/07/21 05:27 RBC 5.00 X10^6/uL (3.5-5.4) 02/07/21 05:27 Hgb 10.3 g/dL (12.0-16.0) L 02/07/21 05:27 Hct 33.9 % (36.0-47.0) L 02/07/21 05:27 MCV 67.9 fL (80.0-100.0) L 02/07/21 05:27 MCH 20.7 pg (27.0-34.0) L 02/07/21 05:27 MCHC 30.4 g/dL (33.0-35.0) L 02/07/21 05:27 RDW 31.0 % (11.6-16.5) H 02/07/21 05:27 Plt Count 515 X10^3/uL (150.0-450.0) H 02/07/21 05:27 Plt Count Comment Increased (ADEQUATE) A 02/07/21 05:27 MPV 8.2 fL (7.4-11.0) 02/07/21 05:27 Neut % (Auto) 68.5 % (42.0-75.0) 02/07/21 05:27 Lymph % (Auto) 20.5 % (21.0-51.0) L 02/07/21 05:27 [place] % (Auto) 8.9 % (0.0-13.0) 02/07/21 05:27 Eos % (Auto) 1.7 % (0.9-2.9) 02/07/21 05:27 Baso % (Auto) 0.4 % (0.2-1.0) 02/07/21 05:27 Neut # (Auto) 6.6 x10^3/uL (2.2-4.8) H 02/07/21 05:27 Lymph # (Auto) 2.0 X10^3/uL (1.3-2.9) 02/07/21 05:27 [place] # (Auto) 0.9 x10^3/uL (0.3-0.8) H 02/07/21 05:27 Eos # (Auto) 0.2 x10^3/uL (0.0-0.2) 02/07/21 05:27 Baso # (Auto) 0.0 X10^3/uL (0.0-0.1) 02/07/21 05:27 Absolute Nucleated RBC 0.1 /100WBC 02/07/21 05:27 Plt Morphology Comment Normal (NORMAL) 02/07/21 05:27 RBC Morphology Abnormal (NORMAL) A 02/07/21 05:27 Dimorphic RBCs Slight 02/07/21 05:27 Hypochromasia 2+ A 02/07/21 05:27 Anisocytosis 3+ A 02/07/21 05:27 Microcytosis 1+ A 02/07/21 05:27 Ovalocytes 1+ A 02/07/21 05:27 Sodium 133 mmol/L (136-145) L 02/07/21 05:27 Corrected Sodium 136 mmol/L (136-145) 02/07/21 05:27 Potassium 3.5 mmol/L (3.5-5.1) 02/07/21 05:27 Chloride 98 mmol/L (98-107) 02/07/21 05:27 Carbon Dioxide 25.8 mmol/L (21-32) 02/07/21 05:27 BUN 14 mg/dL (7-18) 02/07/21 05:27 Creatinine 1.14 mg/dL (0.55-1.02) H 02/07/21 05:27 Est GFR (MDRD) Af Amer 60 (>60) 02/07/21 05:27 Est GFR (MDRD) Non-Af 49 (>60) L 02/07/21 05:27 Glucose 243 mg/dL (65-99) H 02/07/21 05:27 POC Glucose (mg/dL) 251 mg/dL (65-99) H 02/07/21 13:31 Calcium 9.6 mg/dL (8.5-10.1) 02/07/21 05:27 Corrected Calcium TNP 02/07/21 05:27 Iron 27 ug/dL (50-175) L 02/06/21 09:00 TIBC 360 ug/dL (250-450) 02/06/21 09:00 % Saturation 7.5 % (11.0-46.0) L 02/06/21 09:00 Transferrin 263 mg/dL (202-364) 02/05/21 16:35 Ferritin 33 ng/mL (8-252) 02/05/21 16:35 Total Bilirubin 0.30 mg/dL (0.2-1.0) 02/07/21 05:27 AST 19 Units/L (15-37) 02/07/21 05:27 ALT 20 Units/L (12-78) 02/07/21 05:27 Alkaline Phosphatase 91 Units/L (46-116) 02/07/21 05:27 Total Protein 7.8 g/dL (6.4-8.2) 02/07/21 05:27 Albumin 3.5 g/dL (3.4-5.0) 02/07/21 05:27 Globulin 4.3 g/dL (2.5-4.5) 02/07/21 05:27 Albumin/Globulin Ratio 0.8 Ratio (1.1-2.1) L 02/07/21 05:27 Vitamin B12 511 pg/mL (193-986) 02/05/21 16:35 Folate > 20.0 ng/mL (>8.6) 02/05/21 16:35 Free T4 1.16 ng/dL (0.76-1.46) 02/05/21 16:35 TSH 3rd Generation 0.310 uIU/mL (0.358-3.74) L 02/05/21 16:35 Specimen Type Catherized urine 02/06/21 16:30 Urine Color Yellow (YELLOW) 02/06/21 16:30 Urine Appearance Cloudy (CLEAR) 02/06/21 16:30 Urine pH 6.0 (5.0 - 8.0) 02/06/21 16:30 Ur Specific [place] 1.010 (1.000-1.030) 02/06/21 16:30 Urine Protein 4+ (NEGATIVE) 02/06/21 16:30 Urine Glucose (UA) 4+ (NEGATIVE) 02/06/21 16:30 Urine Ketones Negative (NEGATIVE) 02/06/21 16:30 Urine Occult Blood 1+ (NEGATIVE) 02/06/21 16: Urine Nitrite Negative (NEGATIVE) 02/06/21 16: Urine Bilirubin Negative (NEGATIVE) 02/06/21 16:30 Urine Urobilinogen Normal (NORMAL) 02/06/21 16:30 Ur Leukocyte Esterase 1+ (NEGATIVE) 02/06/21 16:30 Urine RBC 3-5 /HPF (0-3) A 02/06/21 16:30 Urine WBC 3-5 /HPF (0-5) 02/06/21 16:30 Ur Squamous Epith Cells Rare /HPF (NEGATIVE) 02/06/21 16:30 Urine Bacteria Trace /HPF (NEGATIVE) 02/06/21 16:30 Urine Mucus Rare /HPF (NEGATIVE) 02/06/21 16:30 Ur Culture Indicated? No/not indicated 02/06/21 16:30 Stool Description Watery brown 02/06/21 21:41 Stl Occult Blood (IFOB) Positive (NEGATIVE) A 02/06/21 21:41 SARS CoV-2 RNA Rapid CANDIE Negative (NEGATIVE) 02/05/21 13:54 Tissue Pathology To follow 02/07/21 13:34 - Plan (1) Schizophrenia Status: Chronic (2) Altered mental status Status: Acute Plan: Ct head wo (3) Depression Status: Chronic (4) Dementia with behavioral problem Status: Acute Qualifiers: Dementia type: Alzheimer's disease Alzheimer's disease onset: unspecified onset Plan: for discharge planning (5) Abdominal pain Status: Acute Plan: See CT abd results abnormal. Consult Dr. Boyce for colonoscopy and anemia. (6) Anemia Status: Acute Plan: Monitor. Repeat labs in am (7) Frequent falls Status: Acute
--- NOTE | 2021-02-07 16:35 | OR.IMMED ---
Immediate Post-Op Note - Immediate Post-Op Note Pre-Op Diagnosis: anemia , abdominal pain , Post-Op Diagnosis: slightly dilated esophagus with food particles and spastic LES. (mild achalasia) ). large sircumferential and ulcerated mass of the TC very suspicious for cancer. several polypd of the RT colon and one in the sigmoid . Procedure: EGD with Bx . colonoscopy to the cecum with Bx . polypectomy x 1. tattooing of colon mass at the proximal TC . Surgeon/[employer]: Dr Boyce Drains: NONE Complications: none Condition: Stable (to advance diet .. wait for the pathology report and future colectomy after medical clearance .)
[2021-02-07 16:38] LABS: BASOPHILS % (AUTO) 0.4 % (0.2-1.0); EOSINOPHILS # (AUTO) 0.2 x10^3/uL (0.0-0.2); MONOCYTES # (AUTO) 0.9 x10^3/uL (0.3-0.8)
[2021-02-07 16:46] LABS: ALANINE AMINOTRANSFERASE 11 Units/L (12-78); ALBUMIN 3.7 g/dL (3.4-5.0); ALKALINE PHOSPHATASE 93 Units/L (46-116); ASPARTATE AMINO TRANSFERASE 19 Units/L (15-37); BLOOD UREA NITROGEN 18 mg/dL (7-18); CALCIUM 9.5 mg/dL (8.5-10.1); CARBON DIOXIDE 25.2 mmol/L (21-32); CHLORIDE 98 mmol/L (98-107); COR NA(FOR HYPERGLY) 137 mmol/L (136-145); CREATININE 1.74 mg/dL (0.55-1.02); SODIUM 133 mmol/L (136-145); eGFR NON BLACK RACES 30 (>60)
[2021-02-07 16:47] LABS: EOSINOPHILS % (AUTO) 1.9 % (0.9-2.9); HEMATOCRIT 34.8 % (36.0-47.0); HEMOGLOBIN 10.5 g/dL (12.0-16.0); LYMPHOCYTES # (AUTO) 2.7 X10^3/uL (1.3-2.9); LYMPHOCYTES % (AUTO) 27.3 % (21.0-51.0); MEAN CORPUSCULAR HEMOGLOBIN 20.6 pg (27.0-34.0); MEAN CORPUSCULAR HGB CONC 30.1 g/dL (33.0-35.0); MEAN CORPUSCULAR VOLUME 68.4 fL (80.0-100.0); MEAN PLATELET VOLUME 8.4 fL (7.4-11.0); NEUTROPHILS % (AUTO) 61.4 % (42.0-75.0); PLATELET COUNT 522 X10^3/uL (150.0-450.0); RED BLOOD COUNT 5.09 X10^6/uL (3.5-5.4); WHITE BLOOD COUNT 9.8 X10^3/uL (3.6-10.0)
[2021-02-07 17:27] LABS: ANISOCYTOSIS 3+; HYPOCHROMASIA 2+; MICROCYTOSIS 1+; PLATELET MORPHOLOGY COMMENT NORMAL (NORMAL)
[2021-02-07 17:29] LABS: OVALOCYTES PRESENT
[2021-02-07] MEDS ORDERED: GLUCOPHAGE ONE (20:15)
[2021-02-07] MEDS: SNACK - Diabetic Appropriate PO SCH ×2 (20:37→21:38)
[2021-02-07] MEDS: DESYREL PO SCH (21:39)
[2021-02-07] MEDS: ARICEPT TAB 10 MG PO SCH (21:39)
[2021-02-07] MEDS: LIPITOR TAB 20 MG PO SCH (21:40)
[2021-02-07] MEDS: XANAX PO SCH (21:46)
[2021-02-07] MEDS: RESTORIL CAP 15 MG PO SCH (21:46)
[2021-02-08 05:06] LABS: BASOPHILS % (AUTO) 0.2 % (0.2-1.0); EOSINOPHILS # (AUTO) 0.3 x10^3/uL (0.0-0.2); EOSINOPHILS % (AUTO) 3.2 % (0.9-2.9); HEMATOCRIT 32.6 % (36.0-47.0); LYMPHOCYTES # (AUTO) 2.8 X10^3/uL (1.3-2.9); LYMPHOCYTES % (AUTO) 25.8 % (21.0-51.0); MEAN CORPUSCULAR HEMOGLOBIN 20.8 pg (27.0-34.0); MEAN CORPUSCULAR HGB CONC 30.7 g/dL (33.0-35.0); MEAN PLATELET VOLUME 7.1 fL (7.4-11.0); MONOCYTES % (AUTO) 9.3 % (0.0-13.0); NEUTROPHILS # (AUTO) 6.6 x10^3/uL (2.2-4.8); NEUTROPHILS % (AUTO) 61.5 % (42.0-75.0); PLATELET COUNT 513 X10^3/uL (150.0-450.0); RED BLOOD COUNT 4.79 X10^6/uL (3.5-5.4); RED CELL DISTRIBUTION WIDTH 30.2 % (11.6-16.5); WHITE BLOOD COUNT 10.8 X10^3/uL (3.6-10.0)
[2021-02-08 05:22] LABS: ANISOCYTOSIS 3+; HYPOCHROMASIA 1+; MICROCYTOSIS 1+; OVALOCYTES PRESENT; PLATELET MORPHOLOGY COMMENT NORMAL (NORMAL)
[2021-02-08 05:28] LABS: ALANINE AMINOTRANSFERASE 17 Units/L (12-78); ALBUMIN 3.4 g/dL (3.4-5.0); ALKALINE PHOSPHATASE 91 Units/L (46-116); ASPARTATE AMINO TRANSFERASE 18 Units/L (15-37); BLOOD UREA NITROGEN 23 mg/dL (7-18); CALCIUM 9.2 mg/dL (8.5-10.1); CARBON DIOXIDE 24.8 mmol/L (21-32); CHLORIDE 101 mmol/L (98-107); COR NA(FOR HYPERGLY) 137 mmol/L (136-145); SODIUM 135 mmol/L (136-145); TOTAL PROTEIN 7.6 g/dL (6.4-8.2); eGFR NON BLACK RACES 39 (>60)
[2021-02-08] MEDS: ULTRAM PO PRN (05:40)
[2021-02-08] MEDS: BUTT CREAM (COMPOUND) TOP SCH ×3 (06:01→21:09)
[2021-02-08] MEDS: NovoLIN R (or HumuLIN R) SUBCUT PRN ×3 (06:04→17:28)
[2021-02-08] MEDS ORDERED: GLUCOPHAGE ONE ×2 (08:55→20:44)
[2021-02-08] MEDS: AMARYL TAB 4 MG PO SCH (08:57)
[2021-02-08] MEDS: GLUCOPHAGE PO SCH ×2 (08:58→21:06)
[2021-02-08] MEDS: DETROL LA 2 MG CAP EXT REL PO SCH (08:58)
[2021-02-08] MEDS: PROTONIX TAB 40 MG PO SCH (08:59)
[2021-02-08] MEDS: NAMENDA TAB 10 MG PO SCH (08:59)
--- NOTE | 2021-02-08 11:12 | DR.PROGNOT ---
Hospital Progress Notes - Progress Note for Day of: Progress Note Date: 02/08/21 - Chief Complaint Chief Complaint: mild to moderate abdominal pain .. no nausea or vomiting. tolerating diet . no active bleeding now .Hgb 10.3..BUN /Crea 23/1.4. temp 98.5 - Past Medical Family Social History Past Med/Fam/Surg Hx: No changes since H&P Allergies: Allergies meperidine [From Demerol] Allergy (Verified 05/02/17 12:28) - Review Of Systems ROS: No change since H&P - Vital Signs Vital Signs: Temperature 98.5 F Pulse Rate [Bilateral Radial] 102 Pulse Rate 95 Respiratory Rate 20 Blood Pressure [Left Arm] 147/74 Blood Pressure 203/93 O2 Sat by Pulse Oximetry 96 - Physical Exam Oriented: Not Oriented Eyes: Normal Ear: Normal Nose: Normal Throat: Normal Respiratory: Normal Cardiovascular: Normal : Normal GI:Auscultation: Normal GI:Palpation: Normal GI: Tenderness: Diffuse (soft abdomen with epigastric and RT side tenderness ., no rebound . BS+ ), Mild Skin: Normal Musculoskeletal: Instability Psychiatric: Anxiety Mood Description: Anxious Affect: Anxious Speech Pattern: Clear, Excessive - Laboratory and Diagnostics Result Diagrams: 02/08/21 03:50 02/08/21 03:50 Labs: 02/06/21 16:30 Urine,Clean Catch Urine Culture - Final Laboratory WBC 10.8 X10^3/uL (3.6-10.0) H 02/08/21 03:50 RBC 4.79 X10^6/uL (3.5-5.4) 02/08/21 03:50 Hgb 10.0 g/dL (12.0-16.0) L 02/08/21 03:50 Hct 32.6 % (36.0-47.0) L 02/08/21 03:50 MCV 68.0 fL (80.0-100.0) L 02/08/21 03:50 MCH 20.8 pg (27.0-34.0) L 02/08/21 03:50 MCHC 30.7 g/dL (33.0-35.0) L 02/08/21 03:50 RDW 30.2 % (11.6-16.5) H 02/08/21 03:50 Plt Count 513 X10^3/uL (150.0-450.0) H 02/08/21 03:50 Plt Count Comment Increased (ADEQUATE) A 02/08/21 03:50 MPV 7.1 fL (7.4-11.0) L 02/08/21 03:50 Neut % (Auto) 61.5 % (42.0-75.0) 02/08/21 03:50 Lymph % (Auto) 25.8 % (21.0-51.0) 02/08/21 03:50 [place] % (Auto) 9.3 % (0.0-13.0) 02/08/21 03:50 Eos % (Auto) 3.2 % (0.9-2.9) H 02/08/21 03:50 Baso % (Auto) 0.2 % (0.2-1.0) 02/08/21 03:50 Neut # (Auto) 6.6 x10^3/uL (2.2-4.8) H 02/08/21 03:50 Lymph # (Auto) 2.8 X10^3/uL (1.3-2.9) 02/08/21 03:50 [place] # (Auto) 1.0 x10^3/uL (0.3-0.8) H 02/08/21 03:50 Eos # (Auto) 0.3 x10^3/uL (0.0-0.2) H 02/08/21 03:50 Baso # (Auto) 0.0 X10^3/uL (0.0-0.1) 02/08/21 03:50 Absolute Nucleated RBC 0.0 /100WBC 02/08/21 03:50 Plt Morphology Comment Normal (NORMAL) 02/08/21 03:50 RBC Morphology Abnormal (NORMAL) A 02/08/21 03:50 Dimorphic RBCs 1+ 02/08/21 03:50 Hypochromasia 1+ A 02/08/21 03:50 Anisocytosis 3+ A 02/08/21 03:50 Microcytosis 1+ A 02/08/21 03:50 Ovalocytes Present 02/08/21 03:50 Sodium 135 mmol/L (136-145) L 02/08/21 03:50 Corrected Sodium 137 mmol/L (136-145) 02/08/21 03:50 Potassium 3.3 mmol/L (3.5-5.1) L 02/08/21 03:50 Chloride 101 mmol/L (98-107) 02/08/21 03:50 Carbon Dioxide 24.8 mmol/L (21-32) 02/08/21 03:50 BUN 23 mg/dL (7-18) H 02/08/21 03:50 Creatinine 1.40 mg/dL (0.55-1.02) H 02/08/21 03:50 Est GFR (MDRD) Af Amer 47 (>60) L 02/08/21 03:50 Est GFR (MDRD) Non-Af 39 (>60) L 02/08/21 03:50 Glucose 188 mg/dL (65-99) H 02/08/21 03:50 POC Glucose (mg/dL) 212 mg/dL (65-99) H 02/08/21 05:13 Calcium 9.2 mg/dL (8.5-10.1) 02/08/21 03:50 Corrected Calcium TNP 02/08/21 03:50 Iron 27 ug/dL (50-175) L 02/06/21 09:00 TIBC 360 ug/dL (250-450) 02/06/21 09:00 % Saturation 7.5 % (11.0-46.0) L 02/06/21 09:00 Transferrin 263 mg/dL (202-364) 02/05/21 16:35 Ferritin 33 ng/mL (8-252) 02/05/21 16:35 Total Bilirubin 0.30 mg/dL (0.2-1.0) 02/08/21 03:50 AST 18 Units/L (15-37) 02/08/21 03:50 ALT 17 Units/L (12-78) 02/08/21 03:50 Alkaline Phosphatase 91 Units/L (46-116) 02/08/21 03:50 Total Protein 7.6 g/dL (6.4-8.2) 02/08/21 03:50 Albumin 3.4 g/dL (3.4-5.0) 02/08/21 03:50 Globulin 4.2 g/dL (2.5-4.5) 02/08/21 03:50 Albumin/Globulin Ratio 0.8 Ratio (1.1-2.1) L 02/08/21 03:50 Vitamin B12 511 pg/mL (193-986) 02/05/21 16:35 Folate > 20.0 ng/mL (>8.6) 02/05/21 16:35 Free T4 1.16 ng/dL (0.76-1.46) 02/05/21 16:35 TSH 3rd Generation 0.310 uIU/mL (0.358-3.74) L 02/05/21 16:35 Specimen Type Catherized urine 02/06/21 16:30 Urine Color Yellow (YELLOW) 02/06/21 16:30 Urine Appearance Cloudy (CLEAR) 02/06/21 16:30 Urine pH 6.0 (5.0 - 8.0) 02/06/21 16:30 Ur Specific [place] 1.010 (1.000-1.030) 02/06/21 16:30 Urine Protein 4+ (NEGATIVE) 02/06/21 16:30 Urine Glucose (UA) 4+ (NEGATIVE) 02/06/21 16:30 Urine Ketones Negative (NEGATIVE) 02/06/21 16:30 Urine Occult Blood 1+ (NEGATIVE) 02/06/21 16:30 Urine Nitrite Negative (NEGATIVE) 02/06/21 16:30 Urine Bilirubin Negative (NEGATIVE) 02/06/21 16:30 Urine Urobilinogen Normal (NORMAL) 02/06/21 16:30 Ur Leukocyte Esterase 1+ (NEGATIVE) 02/06/21 16:30 Urine RBC 3-5 /HPF (0-3) A 02/06/21 16:30 Urine WBC 3-5 /HPF (0-5) 02/06/21 16:30 Ur Squamous Epith Cells Rare /HPF (NEGATIVE) 02/06/21 16:30 Urine Bacteria Trace /HPF (NEGATIVE) 02/06/21 16:30 Urine Mucus Rare /HPF (NEGATIVE) 02/06/21 16:30 Ur Culture Indicated? No/not indicated 02/06/21 16:30 Stool Description Watery brown 02/06/21 21:41 Stl Occult Blood (IFOB) Positive (NEGATIVE) A 02/06/21 21:41 SARS CoV-2 RNA Rapid CANDIE Negative (NEGATIVE) 02/05/21 13:54 Tissue Pathology To follow 02/07/21 13:34 - Assessment and Plan 1: colon mass strongly suslicious for malignancy .. multiple polyps Rt side and one in the sigmoid . Gallstones . awaiting pathology report , and family decision , meanwhile having cardiac echo ..CEA level - Problem Patient Problems: Patient Problems Schizophrenia (Chronic) F20.9 Altered mental status (Acute) R41.82 Depression (Chronic) F32.9 Dementia with behavioral problem (Acute) F03.91 Abdominal pain (Acute) R10.9 Anemia (Acute) D64.9 Frequent falls (Acute) R29.6
--- NOTE | 2021-02-08 11:56 | RAD ---
HISTORYPRE OP CLEARANCE.br ^PMH: DM PSH: APPENDIX, HYSTSTUDYCHEST, 1 VIEWCOMPARISONPortable chest February 05, 2021FINDINGSThe trachea is midline. The cardiac silhouette is unremarkable. The lungs are clear without focal infiltrate or effusion. The bony thorax is unremarkable.IMPRESSIONNo acute cardiopulmonary findings and no significant change compared to the prior film February 05, 2021..Electronically signed by: SHERRELL BARCENAS (Feb 08, 2021 11:55:18)
[2021-02-08] MEDS ORDERED: HALDOL PO ONE (14:29)
[2021-02-08] MEDS ORDERED: HALDOL INJ IM NR (15:00)
[2021-02-08] MEDS: ARICEPT TAB 10 MG PO SCH (21:06)
[2021-02-08] MEDS: DESYREL PO SCH (21:06)
[2021-02-08] MEDS: RESTORIL CAP 15 MG PO SCH (21:07)
[2021-02-08] MEDS: XANAX PO SCH (21:07)
[2021-02-08] MEDS: SNACK - Diabetic Appropriate PO SCH ×2 (21:09)
--- NOTE | 2021-02-08 21:32 | PCM.PROG ---
Progress Note - Subjective Subjective: Patient is a 75 year old white female who was admitted due to AMS and rule out GI bleed. Patient remains confused on exam today; which is baseline. Colonoscopy revealed mass which is likely cancerous pending path report from biopsy. Family wishes to take patient home on hospice while path report pending and before any other invase procedures performed. Patient can be discharged in am on hospice. - Past Medical Family Social History Past Med/Fam/Surg Hx: No changes since H&P Allergies: Allergies meperidine [From Demerol] Allergy (Verified 05/02/17 12:28) - Review of Systems ROS: No change since H&P - Vital Signs and I&O's Vital Signs: Temperature 98.8 F Pulse Rate [Bilateral Radial] 108 Pulse Rate 95 Respiratory Rate 23 Blood Pressure [Left Arm] 139/69 Blood Pressure 203/93 O2 Sat by Pulse Oximetry 96 Intake and Output: Intake & Output 02/05/21 02/06/21 02/07/21 02/08/21 23:59 23:59 23:59 23:59 Intake Total 468 / 468 1670 / 1670 1410 / 1410 1240 / 1240 Output Total 0 / 0 Balance 468 / 468 1670 / 1670 1410 / 1410 1240 / 1240 - Physical Exam Oriented: Not Oriented Eyes: Normal Ear: Normal Nose: Normal Throat: Normal Respiratory: Normal Cardiovascular: Normal : Normal Auscultation: Bowel Sounds: Normal Palpation: Normal Tenderness: Diffuse (soft abdomen with epigastric and RT side tenderness ., no rebound . BS+ ), Mild Skin: Normal Musculoskeletal: Instability Psychiatric: Anxiety Mood Description: Anxious Affect: Anxious Speech Pattern: Clear, Excessive - Laboratory and Diagnostics Result Diagrams: 02/08/21 03:50 02/08/21 03:50 Labs: 02/06/21 16:30 Urine,Clean Catch Urine Culture - Final Laboratory WBC 10.8 X10^3/uL (3.6-10.0) H 02/08/21 03:50 RBC 4.79 X10^6/uL (3.5-5.4) 02/08/21 03:50 Hgb 10.0 g/dL (12.0-16.0) L 02/08/21 03:50 Hct 32.6 % (36.0-47.0) L 02/08/21 03:50 MCV 68.0 fL (80.0-100.0) L 02/08/21 03:50 MCH 20.8 pg (27.0-34.0) L 02/08/21 03:50 MCHC 30.7 g/dL (33.0-35.0) L 02/08/21 03:50 RDW 30.2 % (11.6-16.5) H 02/08/21 03:50 Plt Count 513 X10^3/uL (150.0-450.0) H 02/08/21 03:50 Plt Count Comment Increased (ADEQUATE) A 02/08/21 03:50 MPV 7.1 fL (7.4-11.0) L 02/08/21 03:50 Neut % (Auto) 61.5 % (42.0-75.0) 02/08/21 03:50 Lymph % (Auto) 25.8 % (21.0-51.0) 02/08/21 03:50 [place] % (Auto) 9.3 % (0.0-13.0) 02/08/21 03:50 Eos % (Auto) 3.2 % (0.9-2.9) H 02/08/21 03:50 Baso % (Auto) 0.2 % (0.2-1.0) 02/08/21 03:50 Neut # (Auto) 6.6 x10^3/uL (2.2-4.8) H 02/08/21 03:50 Lymph # (Auto) 2.8 X10^3/uL (1.3-2.9) 02/08/21 03:50 [place] # (Auto) 1.0 x10^3/uL (0.3-0.8) H 02/08/21 03:50 Eos # (Auto) 0.3 x10^3/uL (0.0-0.2) H 02/08/21 03:50 Baso # (Auto) 0.0 X10^3/uL (0.0-0.1) 02/08/21 03:50 Absolute Nucleated RBC 0.0 /100WBC 02/08/21 03:50 Plt Morphology Comment Normal (NORMAL) 02/08/21 03:50 RBC Morphology Abnormal (NORMAL) A 02/08/21 03:50 Dimorphic RBCs 1+ 02/08/21 03:50 Hypochromasia 1+ A 02/08/21 03:50 Anisocytosis 3+ A 02/08/21 03:50 Microcytosis 1+ A 02/08/21 03:50 Ovalocytes Present 02/08/21 03:50 Sodium 135 mmol/L (136-145) L 02/08/21 03:50 Corrected Sodium 137 mmol/L (136-145) 02/08/21 03:50 Potassium 3.3 mmol/L (3.5-5.1) L 02/08/21 03:50 Chloride 101 mmol/L (98-107) 02/08/21 03:50 Carbon Dioxide 24.8 mmol/L (21-32) 02/08/21 03:50 BUN 23 mg/dL (7-18) H 02/08/21 03:50 Creatinine 1.40 mg/dL (0.55-1.02) H 02/08/21 03:50 Est GFR (MDRD) Af Amer 47 (>60) L 02/08/21 03:50 Est GFR (MDRD) Non-Af 39 (>60) L 02/08/21 03:50 Glucose 188 mg/dL (65-99) H 02/08/21 03:50 POC Glucose (mg/dL) 165 mg/dL (65-99) H 02/08/21 19:35 Calcium 9.2 mg/dL (8.5-10.1) 02/08/21 03:50 Corrected Calcium TNP 02/08/21 03:50 Iron 27 ug/dL (50-175) L 02/06/21 09:00 TIBC 360 ug/dL (250-450) 02/06/21 09:00 % Saturation 7.5 % (11.0-46.0) L 02/06/21 09:00 Transferrin 263 mg/dL (202-364) 02/05/21 16:35 Ferritin 33 ng/mL (8-252) 02/05/21 16:35 Total Bilirubin 0.30 mg/dL (0.2-1.0) 02/08/21 03:50 AST 18 Units/L (15-37) 02/08/21 03:50 ALT 17 Units/L (12-78) 02/08/21 03:50 Alkaline Phosphatase 91 Units/L (46-116) 02/08/21 03:50 Total Protein 7.6 g/dL (6.4-8.2) 02/08/21 03:50 Albumin 3.4 g/dL (3.4-5.0) 02/08/21 03:50 Globulin 4.2 g/dL (2.5-4.5) 02/08/21 03:50 Albumin/Globulin Ratio 0.8 Ratio (1.1-2.1) L 02/08/21 03:50 Vitamin B12 511 pg/mL (193-986) 02/05/21 16:35 Folate > 20.0 ng/mL (>8.6) 02/05/21 16:35 Free T4 1.16 ng/dL (0.76-1.46) 02/05/21 16:35 TSH 3rd Generation 0.310 uIU/mL (0.358-3.74) L 02/05/21 16:35 Specimen Type Catherized urine 02/06/21 16:30 Urine Color Yellow (YELLOW) 02/06/21 16:30 Urine Appearance Cloudy (CLEAR) 02/06/21 16:30 Urine pH 6.0 (5.0 - 8.0) 02/06/21 16:30 Ur Specific [place] 1.010 (1.000-1.030) 02/06/21 16:30 Urine Protein 4+ (NEGATIVE) 02/06/21 16:30 Urine Glucose (UA) 4+ (NEGATIVE) 02/06/21 16:30 Urine Ketones Negative (NEGATIVE) 02/06/21 16:30 Urine Occult Blood 1+ (NEGATIVE) 02/06/21 16:30 Urine Nitrite Negative (NEGATIVE) 02/06/21 16:30 Urine Bilirubin Negative (NEGATIVE) 02/06/21 16:30 Urine Urobilinogen Normal (NORMAL) 02/06/21 16:30 Ur Leukocyte Esterase 1+ (NEGATIVE) 02/06/21 16:30 Urine RBC 3-5 /HPF (0-3) A 02/06/21 16:30 Urine WBC 3-5 /HPF (0-5) 02/06/21 16:30 Ur Squamous Epith Cells Rare /HPF (NEGATIVE) 02/06/21 16:30 Urine Bacteria Trace /HPF (NEGATIVE) 02/06/21 16:30 Urine Mucus Rare /HPF (NEGATIVE) 02/06/21 16:30 Ur Culture Indicated? No/not indicated 02/06/21 16:30 Stool Description Watery brown 02/06/21 21:41 Stl Occult Blood (IFOB) Positive (NEGATIVE) A 02/06/21 21:41 SARS CoV-2 RNA Rapid CANDIE Negative (NEGATIVE) 02/05/21 13:54 Tissue Pathology To follow 02/07/21 13:34 - Plan (1) Schizophrenia Status: Chronic (2) Altered mental status Status: Chronic Plan: Ct head wo (3) Depression Status: Chronic (4) Dementia with behavioral problem Status: Acute Qualifiers: Dementia type: Alzheimer's disease Alzheimer's disease onset: unspecified onset Plan: for discharge planning (5) Abdominal pain Status: Acute Plan: See CT abd results abnormal. Consult Dr. Boyce for colonoscopy and anemia. Mass found. Likely cancerous (6) Anemia Status: Acute Plan: Monitor. Repeat labs in am (7) Frequent falls Status: Acute (8) Mass of colon Status: Acute Plan: Pending path report. Dischare home on hospice in am
[2021-02-08] MEDS: LIPITOR TAB 20 MG PO SCH (22:01)
[2021-02-09 05:27] LABS: BASOPHILS % (AUTO) 0.4 % (0.2-1.0); EOSINOPHILS # (AUTO) 0.4 x10^3/uL (0.0-0.2); EOSINOPHILS % (AUTO) 4.6 % (0.9-2.9); HEMATOCRIT 30.7 % (36.0-47.0); HEMOGLOBIN 9.4 g/dL (12.0-16.0); LYMPHOCYTES # (AUTO) 2.8 X10^3/uL (1.3-2.9); LYMPHOCYTES % (AUTO) 31.6 % (21.0-51.0); MEAN CORPUSCULAR HEMOGLOBIN 20.8 pg (27.0-34.0); MEAN CORPUSCULAR HGB CONC 30.5 g/dL (33.0-35.0); MEAN CORPUSCULAR VOLUME 68.3 fL (80.0-100.0); MEAN PLATELET VOLUME 7.2 fL (7.4-11.0); MONOCYTES # (AUTO) 0.9 x10^3/uL (0.3-0.8); MONOCYTES % (AUTO) 10.4 % (0.0-13.0); NEUTROPHILS # (AUTO) 4.8 x10^3/uL (2.2-4.8); PLATELET COUNT 458 X10^3/uL (150.0-450.0); RED BLOOD COUNT 4.49 X10^6/uL (3.5-5.4)
[2021-02-09 05:41] LABS: ANISOCYTOSIS 3+; HYPOCHROMASIA 2+; MICROCYTOSIS 1+; OVALOCYTES PRESENT; PLATELET MORPHOLOGY COMMENT NORMAL (NORMAL); STOMATOCYTES PRESENT
[2021-02-09 05:45] LABS: ALANINE AMINOTRANSFERASE 14 Units/L (12-78); ALBUMIN 3.1 g/dL (3.4-5.0); ALKALINE PHOSPHATASE 85 Units/L (46-116); ASPARTATE AMINO TRANSFERASE 13 Units/L (15-37); BLOOD UREA NITROGEN 23 mg/dL (7-18); CALCIUM 9.1 mg/dL (8.5-10.1); CARBON DIOXIDE 26.4 mmol/L (21-32); CHLORIDE 103 mmol/L (98-107); COR CA(FOR HYPOALB) 9.8 mg/dL (8.5-10.1); COR NA(FOR HYPERGLY) 140 mmol/L (136-145); CREATININE 0.97 mg/dL (0.55-1.02); MAGNESIUM 2.3 mg/dL (1.7-2.9); SODIUM 138 mmol/L (136-145); TOTAL PROTEIN 7.1 g/dL (6.4-8.2); eGFR NON BLACK RACES 59 (>60)
[2021-02-09] MEDS ORDERED: K-RIDER 10 MEQ/NS 100 ML 10 MEQ/100 ML BAG IV PRN (06:09)
[2021-02-09] MEDS ORDERED: POTASSIUM CHL 40 MEQ/NS 0.45% 500 ML IV PRN (06:09)
[2021-02-09] MEDS ORDERED: POTASSIUM CHLORIDE LIQ 20 MEQ UDC PO PRN (06:09)
[2021-02-09] MEDS ORDERED: MICRO K EXTEN CAP 10 MEQ PO PRN (06:09)
[2021-02-09] MEDS ORDERED: POTASSIUM CHL 60 MEQ/NS 0.45% 500 ML IV PRN (06:09)
[2021-02-09] MEDS ORDERED: KLOR-CON PO PRN (06:09)
[2021-02-09] MEDS ORDERED: K-DUR TAB 20 MEQ PO PRN (06:09)
[2021-02-09] MEDS: BUTT CREAM (COMPOUND) TOP SCH (06:13)
[2021-02-09] MEDS ORDERED: KLOR-CON ONE (06:25)
[2021-02-09] MEDS: NovoLIN R (or HumuLIN R) SUBCUT PRN ×2 (06:31→13:08)
[2021-02-09] MEDS ORDERED: GLUCOPHAGE ONE (08:49)
[2021-02-09] MEDS: AMARYL TAB 4 MG PO SCH (09:51)
[2021-02-09] MEDS: DETROL LA 2 MG CAP EXT REL PO SCH (09:51)
[2021-02-09] MEDS: GLUCOPHAGE PO SCH (09:52)
[2021-02-09] MEDS: PROTONIX TAB 40 MG PO SCH (09:55)
[2021-02-09] MEDS: NAMENDA TAB 10 MG PO SCH (09:58)
[2021-02-09] MEDS: ULTRAM PO PRN (10:14)
[2021-02-09 12:51] VITALS: BP 138/77
== END 2021-02-09 14:47 | disposition hospice, home (50) ==
LOC: MED/SURG
PROVIDERS: ADMIT Internal Medicine; ATTEND Internal Medicine
DX: D50.0 Iron deficiency anemia secondary to blood loss (chronic); F03.91 Unspecified dementia, unspecified severity, with behavioral disturbance; K22.4 Dyskinesia of esophagus; K92.2 Gastrointestinal hemorrhage, unspecified; D12.5 Benign neoplasm of sigmoid colon; C18.4 Malignant neoplasm of transverse colon; Z20.822 Contact with and (suspected) exposure to COVID-19; I10 Essential (primary) hypertension; F32.89 Other specified depressive episodes; R41.82 Altered mental status, unspecified; K63.89 Other specified diseases of intestine; R06.02 Shortness of breath; R29.6 Repeated falls; K20.80 Other esophagitis without bleeding; F20.89 Other schizophrenia; E11.65 Type 2 diabetes mellitus with hyperglycemia